=== PATIENT | female | born 1970 | race Caucasian/White ===

== ENCOUNTER 2021-11-22 15:17 | Outpatient (CLI) | payer OTHER, SELFPAY ==
--- NOTE | 2021-11-22 15:20 | CRLHL7_ITS ---
For Patients: As a result of the Century Cures Act, medical imaging exams and procedure reports are released immediately into your electronic medical record. You may view this report before your referring provider. If you have questions, please contact your health care provider. BILATERAL MAMMOGRAM WITH COMPUTER-AIDED DETECTION AND TOMOSYNTHESIS TECHNIQUE: CC and MLO views were obtained. These mammographic images have been obtained using full-field digital technique. These mammographic images were interpreted with the benefit of computer-aided detection. Breast Tomosynthesis was used in this interpretation. COMPARISON FILM: 10/26/2020, 10/10/2019, 09/03/2018. FINDINGS: The breasts are heterogeneously dense, which may obscure small masses IMPRESSION: There is no radiographic evidence for malignancy. ASSESSMENT: BI-RADS Category 2: Benign RECOMMENDATION: Routine screening mammogram in 1 year. A lay language report of this examination will be provided to the patient. Arley Castaneda M.D. Diagnostic Radiologist [email or web address] CORTES/Dictated by: Arley Castaneda MD @ 11/23/2021 10:48:00 AM (Electronically Signed)
== END 2021-11-22 15:18 | disposition home or self-care (01) ==
PROVIDERS: PCP Physician Assistant Medical; Visit Provider Physician Assistant Medical
DX: Z12.31 Encounter for screening mammogram for malignant neoplasm of breast (principal); R92.2 Inconclusive mammogram
CPT/HCPCS: 77063; 77067

== ENCOUNTER 2022-11-27 08:47 | Outpatient (CLI) | payer OTHER, SELFPAY | END 2022-11-27 08:48 | disposition home or self-care (01) | PROVIDERS: PCP Physician Assistant Medical; Visit Provider Physician Assistant Medical | DX: Z00.00 Encounter for general adult medical examination without abnormal findings (principal); R68.82 Decreased libido; R23.2 Flushing; Z13.6 Encounter for screening for cardiovascular disorders | CPT/HCPCS: 80053; 80061; 83001; 84443 ==

== ENCOUNTER 2022-12-12 14:57 | Outpatient (CLI) | payer OTHER, SELFPAY ==
--- NOTE | 2022-12-12 15:00 | CRLHL7_ITS ---
For Patients: As a result of the Century Cures Act, medical imaging exams and procedure reports are released immediately into your electronic medical record. You may view this report before your referring provider. If you have questions, please contact your health care provider. BILATERAL SCREENING MAMMOGRAM WITH COMPUTER-AIDED DETECTION AND TOMOSYNTHESIS TECHNIQUE: CC and MLO views were obtained. These mammographic images have been obtained using full-field digital technique. These mammographic images were interpreted with the benefit of computer-aided detection. Breast Tomosynthesis was used in this interpretation. COMPARISON FILM: 11/22/21, 10/26/20, 10/21/19. FINDINGS: The breasts are heterogeneously dense, which may obscure small masses. IMPRESSION: There is no radiographic evidence for malignancy. ASSESSMENT: BI-RADS Category 1: Negative RECOMMENDATION: Routine screening mammogram in 1 year. A lay language report of this examination will be provided to the patient. Arley Castaneda M.D. Diagnostic Radiologist [email or web address] DSM/tien PT/Dictated by: Arley Castaneda MD @ 12/13/2022 11:01:00 AM (Electronically Signed)
== END 2022-12-12 14:58 | disposition home or self-care (01) ==
LOC: MAMMO 14:58
PROVIDERS: PCP Physician Assistant Medical; Visit Provider Physician Assistant Medical
DX: Z12.31 Encounter for screening mammogram for malignant neoplasm of breast (principal); R92.2 Inconclusive mammogram
CPT/HCPCS: 77063; 77067

== ENCOUNTER 2023-05-21 08:14 | Outpatient (CLI) | payer OTHER, SELFPAY | END 2023-05-21 08:15 | disposition home or self-care (01) | PROVIDERS: PCP Physician Assistant Medical; Visit Provider Physician Assistant | DX: R68.82 Decreased libido (principal); R63.5 Abnormal weight gain | CPT/HCPCS: 84270; 84402; 84403; 84443 ==

== ENCOUNTER 2023-08-06 08:38 | Outpatient (CLI) | payer OTHER, SELFPAY | END 2023-08-06 08:39 | disposition home or self-care (01) | LOC: NFLDREF 08-08 06:07 | PROVIDERS: PCP Physician Assistant Medical; Referring Provider Physician Assistant Medical; Visit Provider Physician Assistant | DX: R68.82 Decreased libido (principal); Z13.6 Encounter for screening for cardiovascular disorders; Z13.9 Encounter for screening, unspecified | CPT/HCPCS: 80061; 84270; 84402; 84403 ==

== ENCOUNTER 2023-12-19 14:31 | Outpatient (CLI) | payer OTHER, SELFPAY ==
--- NOTE | 2023-12-19 14:40 | CRLHL7_ITS ---
For Patients: As a result of the Century Cures Act, medical imaging exams and procedure reports are released immediately into your electronic medical record. You may view this report before your referring provider. If you have questions, please contact your health care provider. BILATERAL SCREENING MAMMOGRAM WITH COMPUTER-AIDED DETECTION AND TOMOSYNTHESIS TECHNIQUE: CC and MLO views were obtained. These mammographic images have been obtained using full-field digital technique. These mammographic images were interpreted with the benefit of computer-aided detection. Breast Tomosynthesis was used in this interpretation. COMPARISON FILM: 12/12/22, 11/22/21, 10/26/20. FINDINGS: The breasts are heterogeneously dense, which may obscure small masses IMPRESSION: There is no radiographic evidence for malignancy. ASSESSMENT: BI-RADS Category 1: Negative RECOMMENDATION: Routine screening mammogram in 1 year. A lay language report of this examination will be provided to the patient. Arley Castaneda M.D. Diagnostic Radiologist [email or web address] CORTES/Dictated by: Arley Castaneda MD @ 12/20/2023 8:37:00 AM (Electronically Signed)
== END 2023-12-19 14:32 | disposition home or self-care (01) ==
LOC: MAMMO 14:31
PROVIDERS: PCP Physician Assistant Medical; Visit Provider Physician Assistant Medical
DX: Z12.31 Encounter for screening mammogram for malignant neoplasm of breast (principal); R92.2 Inconclusive mammogram
CPT/HCPCS: 77063; 77067

== ENCOUNTER 2024-01-28 08:43 | Outpatient (CLI) | payer OTHER, SELFPAY | END 2024-01-28 08:44 | disposition home or self-care (01) | PROVIDERS: PCP Physician Assistant Medical; Visit Provider Physician Assistant Medical | DX: R53.83 Other fatigue (principal); R63.5 Abnormal weight gain; R68.82 Decreased libido; Z13.0 Encounter for screening for diseases of the blood and blood-forming organs and certain disorders involving the immune mechanism; Z13.21 Encounter for screening for nutritional disorder | CPT/HCPCS: 80053; 80061; 82306; 84443; 86703; 86803 ==

== ENCOUNTER 2024-02-18 14:25 | Outpatient (CLI) | payer OTHER, SELFPAY ==
--- NOTE | 2024-03-04 13:06 | W.PM.SLEEP ---
Sleep Study Details Details Interpreting Provider: Ainsley Date of Sleep Study: 02/18/24 Sleep Study Details: STUDY TYPE:? Home unattended ? BMI:? 25 ORDERING PROVIDER:Warner Coffey INDICATION:? Concerns about sleep apnea ? SLEEP SUMMARY:? 480 minutes monitored RESPIRATORY SUMMARY:? AHI 4.1 low oxygen 85, 3.3% of study oxygen less than 90%, snoring 97.8% PERIODIC LIMB MOVEMENTS OF SLEEP:? Not record CARDIAC:? Range 48-90, mean 56.8 IMPRESSION:? This study is not demonstrate clinically significant obstructive sleep apnea although there were some desaturations. RECOMMENDATION: If sleep disorder strongly suspected for patient slept poorly during study would recommend a repeat study in the lab.
== END 2024-02-18 14:26 | disposition home or self-care (01) ==
LOC: SLEEP 14:26
PROVIDERS: PCP Physician Assistant Medical; Visit Provider Physician Assistant Medical
DX: G47.00 Insomnia, unspecified (principal); R06.83 Snoring
CPT/HCPCS: 95806

== ENCOUNTER 2024-03-17 15:46 | Outpatient (CLI) | payer OTHER, SELFPAY ==
--- NOTE | 2024-03-17 16:00 | CRLHL7_ITS ---
For Patients: As a result of the Century Cures Act, medical imaging exams and procedure reports are released immediately into your electronic medical record. You may view this report before your referring provider. If you have questions, please contact your health care provider. Indication: Anosmia, feeling plate nose. History of sinus surgery for deviated septum Technique: CT of the paranasal sinuses without contrast. Coronal and sagittal reformatted images. Bone and soft tissue algorithms. Comparison: CT 07/17/2011. Findings: Frontal sinuses: The frontal sinuses and frontal recesses are clear. Ethmoid air cells: The ethmoid air cells are clear. Symmetric depths of the olfactory fossa. Sphenoid sinuses: The sphenoid sinuses and ostia are clear. No optic canal or carotid canal dehiscence. Maxillary sinuses: Trace mucosal thickening within the floors of the maxillary sinuses measuring less than 1 mm. The osteomeatal units are clear. Nasal cavity: The nasal septum is midline. No jacob bullosa. No paradoxical turbinates. Skullbase, maxilla, TMJ: No lytic or blastic osseous lesions. No periapical tooth lucencies. Mastoid air cells are clear. Incidental unerupted left canine tooth. Orbital contents: Unremarkable Imaged intracranial contents: Unremarkable Imaged soft tissues structures: Unremarkable IMPRESSION: 1. Unremarkable CT of the paranasal sinuses. No air-fluid level to suggest active sinus disease. 2. The nasal septum is midline. 3. Incidental unerupted left canine tooth. Please note that all CT scans at this facility use dose modulation, iterative reconstruction, and/or weight-based dosing when appropriate to reduce radiation dose to as low as reasonably achievable. Dictated by Arley Dasilva MD @ 03/18/2024 10:28:31 AM (Electronically Signed)
== END 2024-03-17 15:47 | disposition home or self-care (01) ==
LOC: CT 15:48
PROVIDERS: PCP Physician Assistant Medical; Visit Provider Otolaryngology
DX: R43.0 Anosmia (principal); J34.2 Deviated nasal septum; K00.6 Disturbances in tooth eruption
CPT/HCPCS: 70486

== ENCOUNTER 2024-04-08 20:10 | Outpatient (CLI) | payer OTHER, SELFPAY ==
--- NOTE | 2024-04-15 12:51 | P.SLS_ITS ---
Sleep Study Details Details Interpreting Provider: Ainsley Date of Sleep Study: 04/08/24 Sleep Study Details: STUDY TYPE:? Hospital attended ? BMI:? 24.7 ORDERING PROVIDER:? Ainsley ? SLEEP SUMMARY:? Concern about sleep apnea RESPIRATORY SUMMARY:? Mean oxygen awake 93 asleep 93 minimum 87, 0.6 minutes oxygen between 80 and 88% AHI 2.1, supine 5.1, nonsupine 0.8 Supine REM AHI 35.3 PERIODIC LIMB MOVEMENTS OF SLEEP:? None CARDIAC:? Awake 68 asleep 63, no arrhythmias noted IMPRESSION:? The overall study is within normal limits however the patient has m ild sleep apnea in the supine position and severe apnea in supine REM sleep. This may explain patient's daytime sleepiness RECOMMENDATION: If patient is very symptomatic a trial of CPAP mom would be reasonable. Additionally positional therapy may be beneficial with avoidance of supine sleep.
== END 2024-04-08 20:11 | disposition home or self-care (01) ==
LOC: SLEEP 20:11
PROVIDERS: PCP Physician Assistant Medical; Visit Provider Otolaryngology
DX: G47.30 Sleep apnea, unspecified (principal); G47.10 Hypersomnia, unspecified; R06.83 Snoring
CPT/HCPCS: 95810

== ENCOUNTER 2024-05-01 16:45 | Outpatient (RCR) | payer OTHER, SELFPAY ==
--- NOTE | 2024-04-29 14:53 | PT.OPE ---
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 have sleep apnea, recommend not sleeping on my back. started again awhile ago, happens when I turn from left to right and look up toward clock, and with looking up or down. unable to get on floor for workout, spikes my anxiety and makes it hard to do anything. Cut my middle finger on circular saw so couldnt do anything x 2 mos bc they had to do surgery on the tendon and couldnt really do the workouts either. balance is worse than usual and I am usually clumsy anywy. rolling over in bed bothers, incerased exertion, and in/out of bed am very frustrated. when I was here last time i remember I threw up and was so sick after for a couple of days then was great. went to ENT vertigo specialist, is not menieres no tumor but the temperature test was miserable. I have migraines, have been told is not menieres no tumor. today couldnt focus on screen - dizzy when loking at leters. 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 B shoulders WNL Strength MMT cervical 5/5 Palpation increased tightness throughout all cervical and upper back mm. significant guarding. restrictions noted into L rotation cervical and tissue tightness through flexion Balance & Gait mild path deviation becomes pronounced with head turn. SLS Posture braces with B UE, holds very still with very limited head movement Other/Pertinent Objective + R [place] (-) L [place] and B horizontal canals head thrust unable to screen vent binder, closes eyes VOR rotation and up down + for symptoms 'not sure if letter moved' Functional Test Performed & Score DHIDizziness Handicap Inventory Summary P1. Does looking up increase your problem? Looking up never increases problem (0 points) E2. Because of your problem, do you feel frustrated? Always feel frustrated because of problem (4 points) F3. Because of your problem, do you restrict your travel for business or pleasure? Dizziness sometimes restricts travel (2 points) P4. Does walking down the aisle of a supermarket increase your problem? Walking in the aisle of a supermarket sometimes increases problem (2 points) F5. Because of your problem, do you have difficulty getting into or out of bed? Sometimes have difficulty getting into or out of bed due to problem (2 points) F6. Does your problem significantly restrict your participation in social activities? Dizziness never restricts participation in social activities (0 points) F7. Because of your problem, do you have difficulty reading ? Dizziness never causes difficulty reading (0 points) F8. Does performing more ambitious activities increase your problem? Performing more ambitious sometimes increases problem (2 points) E9. Are you afraid to leave your home without having someone accompany you? Because of problem, never afraid to leave your home without having someone accompany you (0 points) E10. Because of your problem, have you been embarrassed in front of others? Never embarrassed in front of others because of problem (0 points) P11. Do quick movements of your head increase your problem? Quick movements of head sometimes increase problem (2 points) F12. Because of your problem, do you avoid heights? Always avoid heights because of problem (4 points) P13. Does turning over in bed increase your problem? Turning over in bed sometimes increases problem (2 points) F14. Is it difficult for you to do strenuous housework or yard work? It is never difficult to do strenuous housework or yard work (0 points) E15. Are you afraid people may think that you are intoxicated? Never afraid people may think that you are intoxicated (0 points) F16. Because of your problem, is it difficult for you to go for a walk by yourself? It is never difficult to go for a walk by yourself (0 points) The tools listed on this website do not substitute for the informed opinion of a licensed physician or other health care provider. All scores should be re- checked. Please see our full Terms of Use. P17. Does walking down a sidewalk increase your problem ? Walking down a sidewalk never increases problem (0 points) E18. Because of your problem, is it difficult for you to concentrate? It is sometimes difficult to concentrate (2 points) F19. Is it difficult for you to walk around your house in the dark? It is always difficult to walk around house in the dark (4 points) E20. Because of your problem, are you afraid to stay home alone? Never afraid to stay home alone (0 points) E21. Because of your problem, do you feel handicapped? Never feel handicapped (0 points) E22. Has your problem placed stress on your relationship with family/friends? Problem never places stress on relationships with family or friends (0 points) E23. Because of your problem, are you depressed? Never depressed because of problem (0 points) F24. Does your problem interfere with your job or household responsibilities? Problem never interferes with job or household responsibilities (0 points) P25. Does bending over increase your problem? Bending over sometimes increases problem (2 points) DHI Score: 28/100 Graphical DHI Score: Physical Score: 8/28 Emotional Score: 6/36 Functional Score: 14/36 Pertinent Negative Assessment Assessment/Impression Patient is very pleasant 54 yo female referred to rehab services after seeing ENT for sleep study results for recurrent vertigo. She is known to this therapist through 2 prior episodes of care for similar complaints. Unfortunately she does have hx of emesis with her vertigo, with position testing as well as treatment. She has a long hx of motion sickness, intermittent and poss hormone related migraines and has worked hard to maintain significant weight loss and fitness improvement. She does also have chronic neck pain and low back pain including SI dysfunction which she typically manages with exercise. Unfortunately she required tendon surgery on her middle finger due to a circular saw accident that limited her ability to perform her usual workouts. Since resuming she states SI pain has improved. She presents today with neck pain and restircted motion, tests + R posterior canalithiasis, was treated w Braulio x 1 and became quite ill resulting in vomiting. She recovered with sitting and water. Plan to return next session after reviewing precautions and contraindications of vertigo and repositioning. Invited patient to remain as long as necessary to feel comfortable driving. Patient verbalized agreement. Primary Functional Limitations vertigo with looking up or down, rapid turns looking at alarm clock on right and up while in bed, unable to complete workout without symptoms Plan of Care Rehabilitation Potential Good Rehabilitation Potential Comments hx migraines and undiagnosed chronic recurrence of severe positional vertigo with no known cause Physical Therapy Goals 1.Pt will report >50% improvement in HAs for >3 consecutive days to concentrate on work activities . 2.Pt will display improved tolerance of screens to improve ability to perform work tasks in fast paced meetings. 3.Pt will be able to sit for > 20 minutes with neck pain <2/ 10 and move head up and down without feeling off balance or dizzy. 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 3.Pt will display resolution of VOR cancellation deficit in busy environments to improve tolerance to visits to the grocery store Coordination/Communication With Referral Source Treatment Plan/Direct Interventions Canalith Repositioning, Electrical Stimulation,Manual Therapy,Neuromuscular Re-ed, Self-Care/Home Management, Therapeutic Activities, Therapeutic Exercises Frequency/Duration up to 12 visits 1-2x/ week weaning down to 1x/ 1-2 weeks as able. Patient Will Be Discharged From Therapy Completion of LTG(s),Skills Plateau,Independent w/HEP, Independently Progressing Evaluation Billing Complexity Low Certification Information Initial Certification Date 04/24/24 Ending Certification Date 07/19/24 Provider Signature Required Communication Only-No Signature Required
== END 2024-08-29 23:59 | disposition home or self-care (01) ==
PROVIDERS: PCP Physician Assistant Medical; Visit Provider Otolaryngology
DX: H81.11 Benign paroxysmal vertigo, right ear (principal); H81.93 Unspecified disorder of vestibular function, bilateral; Z51.89 Encounter for other specified aftercare
CPT/HCPCS: 97112; 97161

== ENCOUNTER 2025-02-13 14:53 | Outpatient (CLI) | payer BC, SELFPAY ==
--- NOTE | 2025-02-13 15:00 | CRLHL7_ITS ---
For Patients: As a result of the Century Cures Act, medical imaging exams and procedure reports are released immediately into your electronic medical record. You may view this report before your referring provider. If you have questions, please contact your health care provider. BILATERAL DIGITAL SCREENING MAMMOGRAM WITH COMPUTER-AIDED DETECTION AND TOMOSYNTHESIS 02/13/2025 CLINICAL HISTORY: Routine screening exam. COMPARISON: Mammogram 12/19/2023 and 12/12/2022. TECHNIQUE: Digital mammogram in CC and MLO projections including computer-aided detection (CAD) and tomosynthesis. BREAST COMPOSITION: The breasts are heterogeneously dense, which may obscure small masses. FINDINGS: RIGHT Breast: There is an asymmetry, central to the nipple, posterior depth. LEFT Breast: No suspicious findings. IMPRESSION: RIGHT breast asymmetry. RECOMMENDATIONS: Additional mammographic views of the RIGHT breast including 90 degree lateral and spot compression MLO. RIGHT breast ultrasound may also be required. [facility] will contact the patient. BI-RADS Category 0: Incomplete: Need Additional Imaging Evaluation Dictated by Leti Wilkerson MD @ 02/17/2025 6:45:59 AM/CRL:shereen VAUGHN/Dictated by: Leti Wilkerson MD @ 02/17/2025 6:46:00 AM (Electronically Signed)
== END 2025-02-13 14:54 | disposition home or self-care (01) ==
LOC: MAMMO 14:53
PROVIDERS: PCP Physician Assistant Medical; Visit Provider Physician Assistant Medical
DX: Z12.31 Encounter for screening mammogram for malignant neoplasm of breast (principal); N63.10 Unspecified lump in the right breast, unspecified quadrant; R92.333 Mammographic heterogeneous density, bilateral breasts
CPT/HCPCS: 77063; 77067

== ENCOUNTER 2025-03-03 08:32 | Outpatient (CLI) | payer BC, SELFPAY ==
--- NOTE | 2025-03-03 08:45 | CRLHL7_ITS ---
For Patients: As a result of the Cures Act, medical imaging exams and procedure reports are released immediately into your electronic medical record. You may view this report before your referring provider. If you have questions, please contact your health care provider. RIGHT DIAGNOSTIC MAMMOGRAM WITH COMPUTER-AIDED DETECTION AND TOMOSYNTHESIS RIGHT BREAST ULTRASOUND CLINICAL HISTORY: RIGHT breast mass/asymmetry. COMPARISON: 02/13/2025, 12/19/2023, 12/12/2022. TECHNIQUE: Digital RIGHT mammogram in four projections. Computer-aided detection and tomosynthesis were used in this interpretation. Real-time ultrasound imaging of RIGHT breast with imaging documentation. BREAST COMPOSITION: There are scattered areas of fibroglandular density. FINDINGS: Additional mammogram images submitted. No architectural distortion or suspicious calcifications. No adenopathy. Targeted RIGHT breast ultrasound performed in the retroareolar plane at posterior depth. In this location there is a small simple cyst which measures 3 x 3 x 3 mM corresponding with the mammogram finding on the screening images. IMPRESSION: No suspicious findings. No evidence of malignancy. Incidental 3 mm simple cyst RIGHT breast 12 o`clock, 1 cm from the nipple, at posterior depth. RECOMMENDATIONS: Routine screening mammography. A lay language report of this examination will be provided to the patient. BI-RADS Category 2: Benign Dictated by Arley Castaneda MD @ 03/03/2025 10:26:16 AM /sp SP/Dictated by: Arley Castaneda MD @ 03/03/2025 10:26:00 AM (Electronically Signed)
--- NOTE | 2025-03-03 09:15 | CRLHL7_ITS ---
For Patients: As a result of the Century Cures Act, medical imaging exams and procedure reports are released immediately into your electronic medical record. You may view this report before your referring provider. If you have questions, please contact your health care provider. PLEASE SEE RIGHT BREAST DIAGNOSTIC MAMMOGRAM PERFORMED SAME DAY. CRL:sp SP/Dictated by: Arley Catsaneda MD @ 03/03/2025 10:26:00 AM (Electronically Signed)
== END 2025-03-03 08:33 | disposition home or self-care (01) ==
LOC: MAMMO 08:32
PROVIDERS: PCP Physician Assistant Medical; Visit Provider Physician Assistant Medical
DX: N63.10 Unspecified lump in the right breast, unspecified quadrant (principal); R92.8 Other abnormal and inconclusive findings on diagnostic imaging of breast
CPT/HCPCS: 76642; 77065; G0279